=== PATIENT | female | born 1960 | race Caucasian/White ===

== ENCOUNTER → 2020-06-02 | Outpatient (CLI) | payer OTHER | LOC: EXRD 09:38 | DX: J34.89 Other specified disorders of nose and nasal sinuses (principal); M31.30 Wegener's granulomatosis without renal involvement | CPT/HCPCS: 71046 ==

== ENCOUNTER → 2020-06-23 | Outpatient (CLI) | payer OTHER | LOC: LAB 10:36 | DX: D89.89 Other specified disorders involving the immune mechanism, not elsewhere classified (principal); R76.8 Other specified abnormal immunological findings in serum; J34.89 Other specified disorders of nose and nasal sinuses; D64.9 Anemia, unspecified; E61.1 Iron deficiency | CPT/HCPCS: 36415; 82607; 82728; 82746; 83540; 83550; 84466; 85045 ==